=== PATIENT | male | born 1950 | race Caucasian/White ===

== ENCOUNTER 2024-01-12 13:35 | Outpatient (CLI) | payer MEDICARE, SELFPAY ==
--- NOTE | ~2024-01-12 | PE_ITS ---
EXAMINATION: PET_PETPSMAST_PT DATE: 01/12/2024 15:52 INDICATION: Prostate cancer. TECHNIQUE: 4.838 mCi Ga 68 gozetotide was administered intravenously. Low dose computed tomography (C T) images were acquired from the base of the brain to the proximal thighs for attenuation correction and anatomic localization. Automated exposure control was employed. Dose-length product (DLP) was 137 7 mGy-cm. Positron emission tomography (PET) images were acquired in the same distribution. COMPARISON: None FINDINGS: Head/neck: There are no pathologically enlarged lymph nodes. Chest: The lungs demonstrate mild atelectasis. No pleural effusion. Cardiomegaly is noted. There are coronary artery calcifications. No pericardial effusion. There are no pathologically enlarged lymph n odes. Abdomen/pelvis/proximal thighs: There is a 17 mm cyst in the liver. Calcifications in the spleen are consistent with old granulomatous disease. The gallbladder, pancreas, and right adrenal gland are nor mal. There is a 2.6 cm mass in left adrenal gland measuring low attenuation, consistent with an adeno ma. The kidneys are normal. There is a supraumbilical ventral hernia containing fat. There is diverti culosis of the colon without evidence of diverticulitis. The appendix is normal. There is a left ingu inal hernia containing fat. There are no pathologically enlarged lymph nodes. There is no free intrap eritoneal fluid. The prostate is absent. There is no osseous metastatic disease. IMPRESSION: 1. No evidence of metastatic disease. Reviewed, dictated and finalized at location A.
== END 2024-01-12 13:36 | disposition home or self-care (01) ==
LOC: ANHIMG 13:39
PROVIDERS: PCP Internal Medicine; Visit Provider Urology
DX: C61 Malignant neoplasm of prostate (principal); N52.9 Male erectile dysfunction, unspecified; R31.29 Other microscopic hematuria; R39.9 Unspecified symptoms and signs involving the genitourinary system
CPT/HCPCS: 78815; A9596

== ENCOUNTER 2025-05-02 07:37 | Outpatient (CLI) | payer MEDICARE, SELFPAY ==
--- NOTE | ~2025-05-02 | PE_ITS ---
EXAMINATION: PET_PETPSMAST_PT DATE: 05/02/2025 09:46 INDICATION: Prostate cancer TECHNIQUE: 5.385 mCi of Illucix Ga-68([id number]) was administered i.v. Low dose computed ruth graphy (CT) images were acquired from the base of the brain to the base of the brain to the proximal thighs for attenuation correction and anatomic localization. Positron emission tomography (PET) image s were acquired in the same distribution beginning 85 minutes after injection. Images including fused PET/CT images were reconstructed in axial, coronal, and sagittal planes. Automated exposure control technique was employed. The dose-length product was 1336.89mGy-cm. COMPARISON: 01/12/2024 FINDINGS: Head/neck: Typical pattern of symmetric physiologic increased activity in the lacrimal, parotid and submandibula r glands as well as along the mucosa of the nasal and oral cavities, pharynx and hypopharynx. No path ologically enlarged cervical lymphadenopathy or suspicious foci of increased uptake in the visualized head or neck. Chest: Mild dependent atelectasis in both lungs. Small pneumatocele at the superior segment of the left lowe r lobe. No suspicious pulmonary nodules, pneumonia, or edema or pleural effusion. Heart size is charity l. Atherosclerotic coronary artery calcifications. No pericardial effusion. Thoracic aorta is normal in caliber. No pathologically enlarged or PSMA avid thoracic lymphadenopathy. Abdomen/pelvis/proximal thighs: Physiologic renal accumulation and excretion of activity in the kidneys, bladder and along portions o f ureters. Status post prostatectomy with no abnormal nodular soft tissue at the prostatectomy bed on CT to suggest residual/locally recurrent disease. Normal degree and slightly heterogenous pattern of increased uptake throughout the liver and spleen without radiologic correlate or dominant PSMA avid lesion. Photopenic defect corresponding to a 2 cm low-attenuation cyst in the right hepatic lobe. The gallbladder, pancreas and right adrenal gland are normal. 2.8 cm low density left adrenal adenoma wi thout PSMA activity. Moderate uptake scattered throughout the bowels with typical duodenal and proxim al jejunal predominance and without radiologic correlate, also likely physiologic. There is mild colo radha diverticulosis with a sigmoid predominance. There is no adjacent inflammatory change to suggest d iverticulitis. Small bilateral fat-containing inguinal hernias. No other abnormal foci of increased uptake or pathologically enlarged lymphadenopathy in the abdomen, pelvis or proximal thighs. Musculoskeletal: Severe cervical and lower lumbar spondylosis. Mild to moderate spondylosis of the intervening thoraci c and lumbar spine. No suspicious lytic, blastic or abnormally PSMA avid bone lesions. IMPRESSION: 1. Status post prostatectomy. No evident metastatic disease or locally recurrent disease on CT. Asses sment for locally recurrent disease on PET is limited by the intense urine activity in the bladder. Reviewed, dictated and finalized at location A. IMPRESSION: 1. Status post prostatectomy. No evident metastatic disease or locally recurren t disease on CT. Assessment for locally recurrent disease on PET is limited by the intense urine activity in the bladder.
--- OUTSIDE RECORDS SUMMARY | 2025-05-02 07:40 | XMS_ITS | Referral Summary ---
Author Organization [facility] Physician Of [facility] [address] [place] [phone] Care Team Providers Care Special Education Classroom Aide Name Role Phone Edward Varela MD PhD Unavailable [phone] Arun Aguilar MD Unavailable [phone] Robe Camejo MD Unavailable [phone] Dominic Arciniega MD Primary Care Provider + Encounters Date Type Department Care Team Description 04/16/2025 3:40 PM CDT Lab [address] [address] 04/08/2025 10:00 AM CDT Procedure visit [facility] at [address] [place] [id number] Gosia Ibarra Au.D. Sensorineural hearing loss (SNHL), bilateral (Primary Dx); Sensorineural hearing loss (SNHL) of both ears 04/08/2025 9:45 AM CDT Office Visit [facility] - [address] [place] [phone] Maria Santana DO Sensorineural hearing loss (SNHL) of both ears (Primary Dx); Impacted cerumen, left ear from Last 3 Months Allergies No known active allergies Medications acetaminophen (TYLENOL) 325 mg tabletIndication s:pain Take 2 tablets (650 mg total) by mouth every 6 (six) hours as needed for pain 1 Active multivitamin capsuleIndicatio ns:Vitamin Deficiency Prevention Take 1 capsule by mouth daily before breakfast Active aspirin 81 mg chewable tablet Take 1 tablet (81 mg total) by mouth daily 30 tablet 2 Active atorvastatin (LIPITOR) 20 mg tabletIndication s:Transient global amnesia Take 1 tablet by mouth once daily 90 tablet 3 Active losartan (COZAAR) 100 mg tablet Take 1 tablet (100 mg total) by mouth daily Active rivaroxaban (XARELTO) 15 mg tabletIndication s:atrial fibrillation Take 1 tablet (15 mg total) by mouth 2 (two) times a day 60 tablet 2 1 04/08/20 25 Discontin ued(Thera py completed ) loperamide (IMODIUM A-D) 2 mg tablet Take 2 mg by mouth 4 (four) times a day as needed for diarrhea 04/08/20 25 Discontin ued(Thera py completed ) Active Problems Problem Noted Date Diagnosed Date Sensorineural hearing loss (SNHL) of both ears 0 04/08/2025 Assessment & Plan (04/08/2025 11:45 AM CDT): Hearing test moderate to severe SNHL, hearing aids recommended Have Dental Evaluation Impacted cerumen, left ear 04/08/2025 Assessment & Plan (04/08/2025 11:45 AM CDT): Have Dental Evaluation 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 - Continue follow-up with IR as directed. - Discussed with patient the rational for treatment, culture results, risk of recurrent infection, signs/symptoms of recurrent infection, and to contact ID clinic with any questions or concerns. - Augmentin can be associated with GI intolerance, diarrhea, rash, leukopenia, thrombocytopenia, interstitial nephritis, LFT elevation, cholestatic hepatitis. - Vancomycin can cause renal impairment, neutropenia, eosinophilia, DRESS, ototoxicity, and thrombocytopenia. Due to the side effects, CBC and BMP should be monitored weekly while on vancomycin. Atrial fibrillation with RVR 04/16/2021 History of prostate cancer 04/15/2021 Morbid obesity 04/15/2021 Hyponatremia 04/15/2021 Volume depletion 04/15/2021 Severe sepsis 04/13/2021 Assessment & Plan (04/14/2021 9:13 AM CDT): Suspected to have infection of large right lower quadrant abdominal/oswaldo pelvic fluid collection seen on CT (imaging personally reviewed). Presented with severe leukocytosis and tachycardia. WBC count improving quickly with broad-spectrum IV antibiotics, continue IV vancomycin and cefepime. Follow-up blood cultures. Urology consulted because of possible complication prostatectomy 03/03/2021. Order placed for IR drainage fluid collection with culture to be collected. Wound dehiscence 03/24/2021 Prostate cancer 12/03/2020 Overview (12/03/2020): Added automatically from request for surgery [id number] Malignant neoplasm prostate 11/24/2020 Cancer Staging:Clinical stage from 11/24/2020:Stage IIC(cT1c, cN0, cM0, PSA: 12, Grade Group: 3) - Signed by Edward Varela MD PhD on 11/24/2020 Elevated PSA 08/27/2020 Overview (08/27/2020): Added automatically from request for surgery [id number] Encounter for screening colonoscopy 07/16/2020 Overview (07/16/2020): Added automatically from request for surgery [id number] Vertigo 02/16/2014 Overview (01/08/2017): Vertigo Social History Tobacco Use Types Packs/Day Years Used Date Smoking Tobacco: Never Smokeless Tobacco: Never Tobacco Cessation:Counseling Given: Not Answered Alcohol Use Standard Drinks/Week Comments Yes 1 (1 standard drink = 0.6 oz pur e alcohol) AUDIT-C Answer Date Recorded Q1: How often do you have a drink containing alc ohol? 2-4 times a month 12/19/2021 Average Number of Drinks Not on file 022 Q3: How often do you have si x or more drinks on one occasion? Never 12/19/2021 Sex and Gender Information Value Date Recorded Sex Assigned at Not on file Legal Sex Male 12:42 AM QUARTER SEAMER Gender Identity Not on file Sexual Orientation Straight 10/15/2020 1: 31 PM QUARTER SEAMER Last Filed Vital Signs Vital Sign Reading Time Taken Comments Blood Pressure 124/72 04/08/2025 9:33 AM CDT Pulse 95 04/08/2025 9:33 AM CDT Temperature 36.3 C (97.3 F) 04/08/2025 9:33 AM CDT Respiratory Rate 16 06/07/2023 8:37 AM CDT Oxygen Saturation 96% 04/08/2025 9:33 AM CDT Inhaled Oxygen Concentration - - Weight 124.7 kg (275 lb) 04/08/2025 9:33 AM CDT Height 177 cm (5' 9.69) 04/08/2025 9:33 AM CDT Body Mass Index 39.82 04/08/2025 9:33 AM CDT Plan of Treatment Not on file Medical Devices Implanted Type Area House Moving Supervisor Device Identifier Shelf Expiration Date Model / Serial / Lot Joint Bilateral: Knee Procedures Procedure Name Priority Date/Time Associated Diagnosis Comments PSA SCREEN Routine 04/16/2025 3:45 PM CDT AUDIOGRAM Routine 04/08/2025 10:00 AM CDT Sensorineural hearing loss (SNHL), bilateral HEPATITIS C RNA, QUANTITATIVE, PCR Routine 08/09/2023 11:37 AM QUARTER SEAMER COLONOSCOPY 08/18/2020 9:59 AM QUARTER SEAMER from Last 3 Months or Most Recently Relevant to Health Maintenance Results * PSA screen (04/16/2025 3:45 PM CDT) Pathologist [facility] PSA-Total 0.25 <=6.20 ng/mL Comment: Interpretive Data AGE SEX REFERENCE INTERVAL 0 minutes-150 years Female None 0 minutes-49 years Male None 50-59 years Male 0-3.90 60-69 years Male 0-5.40 70-79 years Male 0-6.20 80-150 years Male 0-6.20 The [employer] PSA Total assay procedure was used. Results from different manufacturers or methods may not be comparable. Serial testing should be performed using the same method. Current interpretive data last revised 22. Blood 04/16/2025 3:45 PM CDT 04/16/2025 4:07 PM CDT us Leighton Lees MD LAB BLOOD ORDERABLES Final Re sult DANIELLE COUNTS INCLUDE 234 BEDS AT THE [facility] 1 [facility] [place] [address] * AUDIOGRAM (04/08/2025 10:00 AM CDT) Narrative Gosia Ibarra Au.D. - 04/08/2025 10:00 AM CDT Gosia Ibarra Au.D. 04/08/2025 12:55 PM Audiogram Performed by: Gosia Ibarra Au.D. Authorized by: Maria Santana DO Maria Santana DO AUDIOLOGY SERVICES ORDERABLE S Final Result * Hepatitis C (HCV) RNA PCR, quantitative Blood (08/09/2023 11:37 AM QUARTER SEAMER) Pathologist [facility] HCV RNA result Not Detected APOLINAR ALONSO COUNTS INCLUDE 234 BEDS AT THE [facility] Comment: The quantifiable range of this assay is 15 IU/mL to 100,000,000 IU/mL (1.18 log IU/mL to 8.00 log IU/mL). Testing was performed by the [place] [facility] HCV Test ([employer] Testing performed at [facility] Current Interpretive Data was last revised on 2021 Testing performed by: [facility], [address] [place]., [address] Blood 08/09/2023 11:3 7 AM QUARTER SEAMER 08/09/2023 7:44 PM QUARTER SEAMER us Jessica Caballero NP LAB MICROBIOLOGY - GENERAL ORDERABLES Final Result DANIELLE COUNTS INCLUDE 234 BEDS AT THE [facility] [place] 1 [facility] Department of Laboratories [place], [place] [id number] * COLONOSCOPY (08/18/2020 9:59 AM QUARTER SEAMER) Anatomical Region Laterality Modality Other Narrative Procedure Note Gokul Butts MD - 08/18/2020 9:59 AM CST [facility] Patient Name: Adarsh Sigala Procedure Date: 08/18/2020 9:59 AM Date of : 1950 Admit Type: Outpatient Age: 70 Gender: Male Attending MD: Gokul Butts M.D. Room: COUNTS INCLUDE 234 BEDS AT THE [facility] ENDOSCOPY ROOM 2 Note Status: Finalized Patient Profile: Refer to note in patient chart for documentation of history and physical. Procedure: Colonoscopy Indications: Screening for colorectal malignant neoplasm, This is the patient's first colonoscopy Referring MD: Jack Penn M.D. Providers: Gokul Butts M.D. Impression: - Hemorrhoids found on perianal exam. - Diverticulosis in the sigmoid colon. - The examination was otherwise normal. - No specimens collected. Recommendation: - Discharge patient to home. - Resume previous diet. - Continue present medications. - Repeat colonoscopy in 10 years for screeningpurposes. - Return to primary care physician as previously scheduled. Medicines: Propofol per Anesthesia Complications: No immediate complications. Estimated Blood Loss: Estimated blood loss: none. Procedure: Pre-Anesthesia Assessment: - This assessment was completed [Time of Assessment] prior to the administration of sedation. The benefits, risks and alternatives of theprocedure and sedation were discussed and informed consent was obtained. All questions were answered. Please referto the signed informed consent document in the medical record. The bowel preparation used was Miralax. The bowel preparation used was bisacodyl tablets. Bowel prep was administered using a single dose. The scope was passed under direct vision. The Colonoscope [id number] was introduced through the anusand advanced to the the cecum, identified by appendiceal orifice and ileocecal valve. The colonoscopy was performed without difficulty. The patient toleratedthe procedure well. The quality of the bowel preparation was good. Findings: Hemorrhoids were found on perianal exam. Multiple small and large-mouthed diverticula were found in thesigmoid colon. The exam was otherwise without abnormality. Electronically signed by Gokul Butts M.D. Gokul Butts M.D. 08/18/2020 11:15:15 AM Number of Addenda: 0 Note Initiated On: 08/18/2020 9:59 AM Procedure Code(s): --- Professional --- G0121, Colorectal cancer screening; colonoscopy on individual not meeting criteria for high risk Diagnosis Code(s): --- Professional --- K57.30, Diverticulosis of large intestine without perforation orabscess without bleeding K64.9, Unspecified hemorrhoids Z12.11, Encounter for screening for malignant neoplasm of colon CPT copyright 2017 [employer]. All rights reserved. The codes documented in this report are preliminary and upon paper inserter reviewmay be revised to meet current compliance requirements. Recognized by the [employer] for promoting quality in endoscopy Gokul Butts MD ENDOSCOPY PROCEDURES Final Re sult from Last 3 Months or Most Recently Relevant to Health Maintenance Insurance MEDICARE [facility] MEDICARE [facility] MEDICARE [facility] MEDICARE AARP Advance Directives For more information, please contact: [phone] * Full Code (Latest Code Status on File) Date Activated Date Inactivated Comments 12/19/2021 3:07 AM 12/19/2021 8:36 PM * Full Code Date Activated Date Inactivated Comments 05/21/2021 10:45 AM 05/22/2021 4:43 AM * Full Code Date Activated Date Inactivated Comments 05/11/2021 1:31 PM 05/11/2021 7:31 PM * Full Code Date Activated Date Inactivated Comments 05/04/2021 10:16 AM 05/04/2021 4:27 PM * Full Code Date Activated Date Inactivated Comments 04/17/2021 1:35 PM 04/26/2021 7:10 PM Care Teams Special Education Classroom Aide Relationship Specialty Start Date End Date Dominic Arciniega MD [address] [place] [address] PCP - General Internal Medicine 06/07/23 Edward Varela MD PhD [address] [place] [address] Radiation Oncologist Radiation Oncology 11/24/20 Arun Aguilar MD [address] [facility] [place] [address] Referring Physician Urology 11/24/20 Robe Camejo MD 4 [facility] [address] [address] Consulting Physician Neurology 12/19/21
--- OUTSIDE RECORDS SUMMARY | 2025-05-02 07:40 | XMS_ITS | Encounter Summary ---
Author Organization [facility] Healthcare Address [address] [place] [address] Care Team Providers Care Public Health Nurse Name Role Phone Jack Penn MD Primary Care Provider + Edward Varela MD PhD Unavailable [phone] Arun Aguilar MD Unavailable [phone] Robe Camejo MD Unavailable [phone] Dominic Arciniega MD Primary Care Provider + Encounter Details Date Type Department Care Team (Late st Contact Info) Description 10/29/2020 Telephone [facility] [address] [place] [id number] Magy Del Rosario RT Social History Tobacco Use Types Packs/Day Years Used Date Smoking Tobacco: Never Smokeless Tobacco: Never Alcohol Use Standard Drinks/Week Comments Yes 1 (1 standard drink = 0.6 oz pur e alcohol) Sex and Gender Information Value Date Recorded Sex Assigned at Not on file Legal Sex Male 12:42 AM REGENERATION OPERATOR Gender Identity Not on file Sexual Orientation Straight 10/15/2020 1: 31 PM REGENERATION OPERATOR documented as of this encounter Miscellaneous Notes * Telephone Encounter - Magy Del Rosario RT - 10/29/2020 3:49 PM REGENERATION OPERATOR NERATION OPERATOR documented in this encounter Plan of Treatment Not on file documented as of this encounter Visit Diagnoses Not on filedocumented in this encounter Additional Health Concerns Infection Onset Date Last Indicated Resolved Time MRSA Comment:axilla 06/30/20, abd 03/26/21 06/30/2020 04/24/2021 03/0 10/2021 4:00 AM REGENERATION OPERATOR COVID: Suspected 06/07/2023 06/07/2023 06/07/2023 8:49 AM CDT COVID19 06/07/2023 06/07/2023 06/17/2023 3:05 AM CDT COVID: Recovered Comment:Added based on recent COVID infection. 06/17/2023 08/09/2023 09/15/2023 3:[address] documented as of this encounter Care Teams Public Health Nurse Relationship Specialty [place] [address] [facility] [address] [place] [address] PCP - General 02/01/12 06/06/23 Dominic Arciniega MD [address] [place] [address] PCP - General Internal Medicine 06/07/23 Edward Varela MD PhD [address] [place] [address] Radiation Oncologist Radiation Oncology 11/24/20 Arun Aguilar MD [address] [place] [address] Referring Physician Urology 11/24/20 Robe Camejo MD [address] [place] [address] [address] [address] Consulting Physician Neurology 12/19/21 documented as of this encounter
--- OUTSIDE RECORDS SUMMARY | 2025-05-02 07:40 | XMS_ITS ---
Author Organization [facility] Physician Of [facility] [address] [place] [phone] Care Team Providers Care Resident Care Director Name Role Phone Edward Varela MD PhD Unavailable [phone] Arun Aguilar MD Unavailable [phone] Robe Camejo MD Unavailable [phone] Dominic Arciniega MD Primary Care Provider + Active Problems Problem Noted Date Diagnosed Date [...] (12/03/2020): Added automatically from request for surgery [id number] Malignant neoplasm prostate 11/24/2020 Cancer Staging:Clinical stage from 11/24/2020:Stage IIC(cT1c, cN0, cM0, PSA: 12, Grade Group: 3) - Signed by Edward Varela MD PhD on 11/24/2020 Elevated PSA 08/27/2020 Overview (08/27/2020): Added automatically from request for surgery [id number] Encounter for screening colonoscopy 07/16/2020 Overview (07/16/2020): Added automatically from request for surgery [id number] Vertigo 02/16/2014 Overview (01/08/2017): Vertigo Current Treatment and Therapy Plans No current plan information found. Past Treatment and Therapy Plans No past plan information found. Lifetime Dose Tracking * Chemical Lifetime Dose Automatic Entry Manual Entr y Fluoro Time 5.3 minutes 5.3 minutes 0 minutes Air kerma at the reference point (Ka,r) 710 mGy 7 10 mGy 0 mGy DLP 5,655 mGycm 5,655 mGycm 0 mGycm
--- OUTSIDE RECORDS SUMMARY | 2025-05-02 07:41 | XMS_ITS | Clinical Summary ---
Author Organization [facility] [address] [place] [id number] Care Team Providers Care Blender / Cook Name Role Phone Edward Varela MD PhD Unavailable [phone] Arun Aguilar MD Unavailable Robe Camejo MD Unavailable [phone] Dominic Arciniega MD Primary Care Provider + Allergies No known active allergies Medications acetaminophen [...] (12/03/2020): Added automatically from request for surgery [id number] Malignant neoplasm prostate 11/24/2020 Cancer Staging:Clinical stage from 11/24/2020:Stage IIC(cT1c, cN0, cM0, PSA: 12, Grade Group: 3) - Signed by Edward Varela MD PhD on 11/24/2020 Elevated PSA 08/27/2020 Overview (08/27/2020): Added automatically from request for surgery [id number] Encounter for screening colonoscopy 07/16/2020 Overview (07/16/2020): Added automatically from request for surgery [id number] Vertigo 02/16/2014 Overview (01/08/2017): Vertigo Encounters Date Type Department Care Team Description 04/16/2025 3:40 PM CDT Lab [address] [address] 04/08/2025 10:00 AM CDT Procedure visit [facility] at [address] [place] [address] Gosia Ibarra Au.D. Sensorineural hearing loss (SNHL), bilateral (Primary Dx); Sensorineural hearing loss (SNHL) of both ears 04/08/2025 9:45 AM CDT Office Visit [facility] - [address] [place] [address] Maria Santana DO Sensorineural hearing loss (SNHL) of both ears (Primary Dx); Impacted cerumen, left ear from Last 3 Months Surgical History Surgery Date Site/Laterality Comments COLONOSCOPY 10/03/2019 - 10/02/2020 PARTIAL KNEE ARTHROPLASTY 10/03/2015 - 10/02/2016 Left PARTIAL KNEE ARTHROPLASTY 10/03/2012 - 10/02/2013 Right URETHRA SURGERY 10/03/1981 - 10/02/1982 PROSTATECTOMY 03/03/2021 ABDOMINAL SURGERY JOINT REPLACEMENT CT GUIDED DRAINAGE PERITONEA L OR RETROPERITONEAL FLUID COLLECTION 04/15/2021 N/A IMAGE GUIDED DRAINAGE PERITO DIMA OR RETROPERITONEAL FLUID COLLECTION 04/17/2021 N/A IMAGE GUIDED DRAINAGE PERITO DIMA OR RETROPERITONEAL FLUID COLLECTION 04/24/2021 N/A ABSCESS CATHETER INJECTION 05/04/2021 N/A ABSCESS CATHETER INJECTION 05/11/2021 N/A ABSCESS CATHETER INJECTION 05/21/2021 N/A Medical History Medical History Date Comments Hx Other Medical resection ureth ra Hx Other Medical urethra resecti on Hematuria Arthritis Cancer (HCC) prostate cancer- post prostatectomy Family History Medical History Relation Name Comments Heart attack Father Heart disease Father Heart failure Father Hyperlipidemia Father Arthritis Mother Heart disease Mother Osteoporosis Mother Stroke Mother Heart disease Other 1 Family history of Heart disease; Osteoporosis Other 2 Family history of osteoporosis; Heart failure Other 3 Family history of Congestive heart failure; Cancer Paternal Grandmother Relation Name Status Comments Father Mother Other 1 Other 2 Other 3 Paternal Grandmother Social History Tobacco Use Types Packs/Day Years [...] on file Legal Sex Male 12:42 AM ART CRITIC Gender Identity Not on file Sexual Orientation Straight 10/15/2020 1: 31 PM ART CRITIC Obstetrics History Last Filed Vital Signs Vital Sign Reading [...] 04/08/2025 9:33 AM CDT Plan of Treatment Health Maintenance Due Date Last Done Comments Depression Screening 1950 DTaP/Tdap/Td Vaccine (1 - Tdap) 1962 Hepatitis B Screening 1969 Pneumococcal vaccine 65+ (1 of 1 - PCV) 2001 Zoster Vaccine (1 of 2) 2001 Well Visit 65+ 01/22/2016 Fall Risk Assessment 12/19/2022 12/19/2021 Influenza Vaccine (#1) 2025 Colon Cancer Screening-Colonoscopy 08/18/2030 08/18/2020 Colon Cancer Screening-CT Colonography Discontinued 08/18/2020 Colon Cancer Screening-DNA Stool Discontinued 08/18/20 Colon Cancer Screening-FIT Discontinued 08/18/2020 Colon Cancer Screening-Sigmoidoscopy Discontinued 08/18/2020 Hepatitis C Screening Completed 08/09/2023 Prostate Cancer Screening-PSA Discontinued , 01/10/2025, 09/18/2024, Additional history exists Medical Devices Implanted Type Area Sales Representative Consultant Device Identifier Shelf Expiration Date Model / Serial / Lot Joint Bilateral: Knee Procedures Procedure Name Priority Date/Time Associated Diagnosis Comments PSA SCREEN Routine 04/16/2025 3:45 PM CDT AUDIOGRAM Routine 04/08/2025 10:00 AM CDT Sensorineural hearing loss (SNHL), bilateral HEPATITIS C RNA, QUANTITATIVE, PCR Routine 08/09/2023 11:37 AM ART CRITIC COLONOSCOPY 08/18/2020 9:59 AM ART CRITIC from Last 3 Months or Most Recently Relevant to Health Maintenance Results * PSA screen (04/16/2025 3:45 PM CDT) PSA-Total 0.25 <=6.20 ng/mL Comment: Interpretive Data [...] LAB BLOOD ORDERABLES Final Re sult DANIELLE MARY ([place]) 1 [facility] Department [place] [address] * AUDIOGRAM (04/08/2025 10:00 AM CDT) Narrative Gosia Ibarra Au.D. - 04/08/2025 10:00 AM CDT Gosia Ibarra Au.D. 04/08/2025 12:55 PM Audiogram Performed by: Gosia Ibarra Au.D. Authorized by: Maria Santana DO us Maria Santana DO AUDIOLOGY SERVICES ORDERABLE S Final Result * Hepatitis C (HCV) RNA PCR, quantitative Blood (08/09/2023 11:37 AM ART CRITIC) HCV RNA result Not Detected APOLINAR HERNANDEZ ([place]) Comment: The quantifiable range of this assay is 15 IU/mL to 100,000,000 IU/mL (1.18 log IU/mL to 8.00 log IU/mL). Testing was performed by the [place] [facility] HCV Test ([employer] Testing performed at [facility] Current Interpretive Data was last revised on 2021 Testing performed by: [facility], [address] [place]., [address] Blood 08/09/2023 11:3 7 AM ART CRITIC 08/09/2023 7:44 PM ART CRITIC us Jessica Caballero NP LAB MICROBIOLOGY - GENERAL ORDERABLES Final Result DANIELLE HERNANDEZ [place]) 1 [facility] Department [place] [address] * COLONOSCOPY (08/18/2020 9:59 AM ART CRITIC) Anatomical Region Laterality Modality Other Narrative Procedure Note Gokul Butts MD - 08/18/2020 9:59 AM CST [facility] Patient Name: Adarsh Sigala Procedure Date: 08/18/2020 9:59 AM Date of : 1950 Admit Type: Outpatient Age: 70 Gender: Male Attending MD: Gokul Butts M.D. Room: [facility] 2 Note Status: Finalized Patient [...] was passed under direct vision. The Colonoscope [id number] was introduced through the anusand advanced to [...] malignant neoplasm of colon CPT copyright 2017 [employer]. All rights reserved. The codes documented in this report are preliminary and upon journalism professor reviewmay be revised to meet current compliance requirements. Recognized by the [employer] for promoting quality in endoscopy Gokul Butts MD ENDOSCOPY PROCEDURES Final Re sult from Last 3 Months or Most Recently Relevant to Health Maintenance [place] [address] [facility] MEDICARE [facility] MEDICARE [facility] MEDICARE AARP Advance Directives For more information, please contact: [phone] * Full Code (Latest Code Status on [...] 1:35 PM 04/26/2021 7:10 PM Care Teams Blender / Cook Relationship Specialty Start Date End Date Dominic Arciniega MD [address] [place] [address] PCP - General Internal Medicine 06/07/23 Edward Varela MD PhD [address] [place] [address] Radiation Oncologist Radiation Oncology 11/24/20 Arun Aguilar MD [address] [place] [address] Referring Physician Urology 11/24/20 Robe Camejo MD [address] [place] [address] [place] [address] Consulting Physician Neurology 12/19/21
--- OUTSIDE RECORDS SUMMARY | 2025-05-02 07:41 | XMS_ITS | Clinical Summary ---
Author Organization [facility] Address [address] [place] [phone] Phone Care Team Providers Care Paragliding Instructor Name Role Phone Jack Lundy MD Primary Care Provider [phone] Allergies No known active allergies Medications Aspirin 81 MG Tablet Take 81 mg by mouth daily. Active azithromycin (ZITHROMAX) 250 MG Tablet Follow directions on mike: Take 2 tabs by mouth on day ONE; then one tablet daily for the next 4 days. 6 Tab 9 Active Active Problems Problem Noted Date Diagnosed Date Bronchitis 12/01/2018 Social History Tobacco Use Types Packs/Day Years Used Date Smoking Tobacco: Never Smokeless Tobacco: Never Alcohol Use Standard Drinks/Week Comments Yes 0 (1 standard drink = 0.6 oz pur e alcohol) occasionally Sex and Gender Information Value Date Recorded Sex Assigned at Not on file Legal Sex Male 11:00 AM PET STORE MERCHANDISER Gender Identity Not on file Sexual Orientation Not on file Last Filed Vital Signs Vital Sign Reading Time Taken Comments Blood Pressure 150/90 12/10/2018 2:36 PM CDT Pulse 86 12/10/2018 2:36 PM CDT Temperature 36.7 C (98.1 F) 12/10/2018 2:36 PM CDT Respiratory Rate 17 12/10/2018 2:36 PM CDT Oxygen Saturation 97% 12/10/2018 2:36 PM CDT Inhaled Oxygen Concentration - - Weight 76.2 kg (168 lb) 12/10/2018 2:36 PM CDT Height 180.3 cm (5' 11) 12/01/2018 11:14 AM PET STORE MERCHANDISER Body Mass Index 23.43 12/01/2018 11:14 AM PET STORE MERCHANDISER Plan of Treatment Health Maintenance Due Date Last Done Comments Hepatitis C Virus (HCV) Screening 1950 TdaP Immunization 1950 Cologuard 01/22/1996 Colonoscopy 01/22/1996 Colorectal Cancer Screening 01/22/1996 Immunochemical Fecal Occult Blood 01/22/1996 Pneumococcal Immunization (5 0+ years) (1 of 1 - PCV) 2001 Zoster Immunization (1 of 2) 2001 SARS-COV-2 Immunization (2 - ) 06/03/2024 01/08/2021 Influenza Immunization (#1) 2025 Respiratory Syncytial Virus (RSV) Immunization (Adult) (1 - 1-dose 75+ series) 2026 Hepatitis B Immunization Aged Out No longer eligible based on patient's age to complete this topic Human Papillomavirus (HPV) Immunization Aged Out No longer eligible b ased on patient's age to complete this topic Meningococcal Immunization (ACWY) Aged Out No longer eligible based on patient's age to complete this topic Rotavirus Immunization Aged Out No lo nger eligible based on patient's age to complete this topic Insurance MEDICARE Care Teams Paragliding Instructor Relationship Specialty [place] [address] [place] [address] PCP - General Internal Medicine 12/01/18
--- OUTSIDE RECORDS SUMMARY | 2025-05-02 07:41 | XMS_ITS | Encounter Summary ---
Author Organization [facility] Address [address] [place] [address] Care Team Providers Care Senior It Recruiter Name Role Phone Jack Penn MD Primary Care Provider + Edward Varela MD PhD Unavailable [phone] Arun Aguilar MD Unavailable [phone] Robe Camejo MD Unavailable [phone] Dominic Arciniega MD Primary Care Provider + Encounter Details Date Type Department Care Team (Late st Contact Info) Description 03/16/2021 Documentation [facility] Health Information Management [address] [place] [id number] Lin Hernandez, [place] [address] [place] [address] Social History Tobacco Use Types Packs/Day Years Used Date Smoking Tobacco: Never Smokeless Tobacco: Never Alcohol Use Standard Drinks/Week Comments Yes 1 (1 standard drink = 0.6 oz pur e alcohol) AUDIT-C Answer Date Recorded Q1: How often do you have a drink containing alc ohol? Monthly or less 02/23/2021 Average Number of Drinks Not on file 021 Frequency of Binge Drinking Not on file 02/01 Sex and Gender Information Value Date Recorded Sex Assigned at Not on file Legal Sex Male 12:42 AM COMMUNITY HEALTH NURSE STAFF Gender Identity Not on file Sexual Orientation Straight 10/15/2020 1: 31 PM COMMUNITY HEALTH NURSE STAFF documented as of this encounter Plan of Treatment Not on file documented as of this encounter Visit Diagnoses Not on filedocumented in this encounter Additional Health Concerns Infection Onset Date Last Indicated Resolved Time MRSA Comment:axilla 06/30/20, abd 03/26/21 06/30/2020 04/24/2021 03/0 10/2021 4:00 AM COMMUNITY HEALTH NURSE STAFF COVID: Suspected 06/07/2023 06/07/2023 06/07/2023 8:49 AM CDT COVID19 06/07/2023 06/07/2023 06/17/2023 3:05 AM CDT COVID: Recovered Comment:Added based on recent COVID infection. 06/17/2023 08/09/2023 09/15/2023 3:[address] documented as of this encounter Care Teams Senior It Recruiter Relationship Specialty [place] [address] [facility] [address] [place] [address] PCP - General 02/01/12 06/06/23 Dominic Arciniega MD [address] [address] PCP - General Internal Medicine 06/07/23 Edward Varela MD PhD [address] [place] [address] [place] [address] Radiation Oncologist Radiation Oncology 11/24/20 Arun Aguilar MD [address] [place] [address] [place] [address] Referring Physician Urology 11/24/20 Robe Camejo MD [address] [place] [address] [address] [place] [address] Consulting Physician Neurology 12/19/21 documented as of this encounter
== END 2025-05-02 07:38 | disposition home or self-care (01) ==
PROVIDERS: PCP Internal Medicine; Visit Provider Urology
DX: C61 Malignant neoplasm of prostate (principal); Z98.52 Vasectomy status
CPT/HCPCS: 78815; A9596